=== PATIENT | male | born 1965 | race Caucasian/White ===

== ENCOUNTER 2016-12-15 01:59 | Emergency (ER) | payer MEDICARE, OTHER ==
[2016-12-15 02:06] VITALS: TEMP 98.6
[2016-12-15] MEDS ORDERED: cloNIDine HCL 0.1 MG TAB PO STA (03:02)
[2016-12-15 03:06] VITALS: RESP 16
--- NOTE | 2016-12-15 03:07 | ED ---
Headache HPI - General Chief Complaint: Headache Stated Complaint: Head/eye pain Time Seen by Provider: 12/15/16 02:40 Source: RN notes reviewed Mode of arrival: ambulatory Limitations: no limitations - History of Present Illness Initial Comments: Patient is a 51-year-old male with a chief complaint of headache for approximately 2 hours. Patient reports he has a history of chronic migraine- like headaches. He reports that he took 2 Percocets at home and did have some relief of his headache symptoms. He reports his pain is a 3 out of 10. Patient reports is also concerned because he's noticed a broken blood vessel is left eye. He denies any drainage or pain from the eye. He states that his vision is somewhat blurred however he is not wearing his glasses. He denies any acute changes in his vision. - Related Data Home Medications Medication Instructions Recorded Confirmed Omeprazole [PriLOSEC] 20 mg PO AC-BRKFST 05/21/15 12/15/16 buPROPion HCL [Wellbutrin SR] 150 mg PO DAILY 05/21/15 12/15/16 oxyCODONE-APAP 10-325MG [Percocet 1 each PO Q6HR PRN 05/21/15 12/15/16 10-325] Allergies Allergy/AdvReac Type Severity Reaction Status Date / Time carisoprodol [From Soma] Allergy Rash/Hives Verified 12/15/16 02:06 levofloxacin [From Levaquin] Allergy Rash/Hives Verified 12/15/16 02:06 Sulfa (Sulfonamide Allergy Rash/Hives Verified 12/15/16 02:06 Antibiotics) Review of Systems ROS Statement: Those systems with pertinent positive or pertinent negative responses have been documented in the HPI. ROS Other: All systems not noted in ROS Statement are negative. Past Medical History Past Medical History: GERD/Reflux, Osteoarthritis (OA) Additional Past Medical History / Comment(s): back pain, recent rectal bleeding History of Any Multi-Drug Resistant Organisms: None Reported Past Surgical History: Back Surgery, Hernia Repair, Orthopedic Surgery Additional Past Surgical History / Comment(s): carpal tunnel surg., jaw surg., right lower leg ORIF, eye surg. Past Anesthesia/Blood Transfusion Reactions: Previous Problems w/ Anesthesia Additional Past Anesthesia/Blood Transfusion Reaction / Comment(s): woke up during surgery Past Psychological History: No Psychological Hx Reported Smoking Status: Current every day smoker Past Alcohol Use History: None Reported Additional Past Alcohol Use History / Comment(s): currently trying to quit smoking, down to 3 cigs/day Past Drug Use History: None Reported General Exam - General Exam Comments Initial Comments: Is a well-appearing 51-year-old male. He does not appear in any acute distress. Limitations: no limitations General appearance: alert, in no apparent distress Head exam: Present: atraumatic, normocephalic, normal inspection Eye exam: Present: normal appearance, PERRL, EOMI, other (Patient has evidence of a burst a blood vessel in the left eye. No evidence of drainage.). Absent: scleral icterus, conjunctival injection, periorbital swelling ENT exam: Present: normal exam, mucous membranes moist Neck exam: Present: normal inspection. Absent: tenderness, meningismus, lymphadenopathy Respiratory exam: Present: normal lung sounds bilaterally. Absent: respiratory distress, wheezes, rales, rhonchi, stridor Cardiovascular Exam: Present: regular rate, normal rhythm, normal heart sounds. Absent: systolic murmur, diastolic murmur, rubs, gallop, clicks GI/Abdominal exam: Present: soft, normal bowel sounds. Absent: distended, tenderness, guarding, rebound, rigid Extremities exam: Present: normal inspection, full ROM, normal capillary refill. Absent: tenderness, pedal edema, joint swelling, calf tenderness Back exam: Present: normal inspection Neurological exam: Present: alert, oriented X3, CN II-XII intact Expanded Patient oriented to: Present: person, place, time Speech: Present: fluid speech Cranial nerves: EOM's Intact: Normal, Gag Reflex: Normal, Tongue Deviation: Normal, Facial Sensation: Normal Cerebellar function: Finger to Nose: Normal Upper motor neuron: Keith Neglect: Normal Sensory exam: Upper Extremity Light Touch: Normal, Lower Extremity Light Touch: Normal Motor strength exam: RUE: 5, LUE: 5, RLE: 5, LLE: 5 Eye Response: (4) open spontaneously Motor Response: (6) obeys commands Verbal Response: (5) oriented [place] Total: 15 Psychiatric exam: Present: normal affect, normal mood Skin exam: Present: warm, dry, intact, normal color. Absent: rash Course Vital Signs 01/25/17 01/25/17 01/25/17 02:04 03:06 03:19 Temperature 98.6 F Pulse Rate 85 85 Respiratory 18 16 Rate Blood Pressure 194/98 165/100 166/91 O2 Sat by Pulse 98 96 Oximetry 12/15/16 03:36 Temperature Pulse Rate 70 Respiratory 16 Rate Blood Pressure 149/96 O2 Sat by Pulse 97 Oximetry - Reevaluation(s) Reevaluation #1: 12/15/16 03:36 Patient was reevaluated and states this headache is a 2 out of 10. He has not been any acute distress. Medical Decision Making - Medical Decision Making Patient is a 51-year-old male with chief complaint of headache for 1 evening. He reports that the headache is more posterior radiates towards the front of his neck. Patient reports that this headache is currently 3 out of 10. He reports pain medications at home. He does not want to receive IV pain medications at this time. He refuses to have any blood work. I did advise the patient to do a computed tomography scan to rule out any abnormal causes for the headache and brain bleed. CT brain was negative for any acute process. Patient did have elevated blood pressure which was 190/100 initially came in. Before patient was given Catapres blood pressure was obtained was 168/100. Patient received 1 mg of Catapres. He also does have a blood vessel that is burst in the left eye. No decreased vision. No drainage of the vision. The blood vessel could be related to trauma for his elevated blood pressure. Patient understands treatment plan will comply. Return parameters were discussed. I advised patient to follow-up with primary care provider regards to hypertension. - Radiology Data Radiology results: report reviewed CT brain was negative for any acute process. Disposition Clinical Impression: Hypertension, Migraine, Burst blood vessel in eye Disposition: HOME SELF-CARE Condition: Good Instructions: Acute Headache (ED) Additional Instructions: Patient instructed to follow up with primary care provider in the next 1-2 days about hypertension. Possible medications to start would be lisinopril or another GARRETT inhibitor. Also possible beta blockers such as metoprolol. Return to the EC if any alarming signs or symptoms occur. Take Motrin Tylenol for the headaches. Referrals: Leslye Valdez MD [Primary Care Provider] - 1-2 days Time of Disposition: 03:49
--- NOTE | 2016-12-15 03:18 | CT ---
EXAMINATION TYPE: CT brain wo con DATE OF EXAM: 12/15/2016 3:13 AM COMPARISON: NONE HISTORY: headache CT DLP: 1090.40 mGycm Automated exposure control for dose reduction was used. FINDINGS: The ventricles and sulci are normal for age. There is no mass effect or midline shift. There is no si gn of intracranial hemorrhage. The calvarium is intact. IMPRESSION: Negative unenhanced head CT scan.
[2016-12-15 03:37] VITALS: BP 149/96; PULSE 70
== END 2016-12-15 03:54 | disposition home or self-care (01) ==
LOC: SUPCPDRO 01:59 → EC 01:59
DX: I10 Essential (primary) hypertension (principal); H11.32 Conjunctival hemorrhage, left eye; G43.909 Migraine, unspecified, not intractable, without status migrainosus; K21.9 Gastro-esophageal reflux disease without esophagitis; Z79.899 Other long term (current) drug therapy; Z88.1 Allergy status to other antibiotic agents; Z88.2 Allergy status to sulfonamides; Z88.8 Allergy status to other drugs, medicaments and biological substances; F17.200 Nicotine dependence, unspecified, uncomplicated
CPT/HCPCS: 70450; 99284

== ENCOUNTER 2023-06-14 12:58 | Emergency (ER) | payer MEDICARE ==
--- NOTE | 2023-06-14 13:39 | ED ---
General Adult HPI - General Chief complaint: Abdominal Pain Stated complaint: back Pain, sent by pcp Time Seen by Provider: 06/14/23 13:00 Source: patient, RN notes reviewed, old records reviewed Mode of arrival: ambulatory Limitations: no limitations - History of Present Illness Initial comments: This is a 58-year-old male who presents emergency Department complaining of back pain and dysuria. Patient denies any fever chills. Patient does state that the lower back pain has been going on for years he thought it might be related to a kidney infection. Patient states she has had a urinary tract infection the past. Patient states he has not been sexually active in the urine a half. Patient denies any significant abdominal pain he states it just has a little suprapubic discomfort but no actual pain. Patient denies any chest pain difficult breathing shortest breath. Patient states yesterday at 102 fever but he has not had a fever yet today. - Related Data Home Medications Medication Instructions Recorded Confirmed Omeprazole [PriLOSEC] 20 mg PO DAILY 05/21/15 06/14/23 oxyCODONE-APAP 10-325MG [Percocet 1 tab PO Q6HR 05/21/15 06/14/23 10-325] Atorvastatin [Lipitor] 10 mg PO DAILY 06/14/23 06/14/23 Multivitamins, Thera [Multivitamin 1 tab PO DAILY 06/14/23 06/14/23 (formulary)] lisinopriL [Zestril] 20 mg PO DAILY 06/14/23 06/14/23 Allergies Allergy/AdvReac Type Severity Reaction Status Date / Time carisoprodol [From Soma] Allergy Rash/Hives Verified 06/14/23 14:51 levofloxacin [From Levaquin] Allergy Rash/Hives Verified 06/14/23 14:51 Sulfa (Sulfonamide Allergy Rash/Hives Verified 06/14/23 14:51 Antibiotics) Review of Systems ROS Statement: Those systems with pertinent positive or pertinent negative responses have been documented in the HPI. ROS Other: All systems not noted in ROS Statement are negative. Past Medical History Past Medical History: GERD/Reflux, Osteoarthritis (OA) Additional Past Medical History / Comment(s): back pain, recent rectal bleeding History of Any Multi-Drug Resistant Organisms: None Reported Past Surgical History: Back Surgery, Hernia Repair, Orthopedic Surgery Additional Past Surgical History / Comment(s): carpal tunnel surg., jaw surg., right lower leg ORIF, eye surg. Past Anesthesia/Blood Transfusion Reactions: Previous Problems w/ Anesthesia Additional Past Anesthesia/Blood Transfusion Reaction / Comment(s): woke up during surgery Past Psychological History: No Psychological Hx Reported Smoking Status: Current every day smoker Past Alcohol Use History: None Reported Past Drug Use History: None Reported General Exam - General Exam Comments Initial Comments: GENERAL: Patient is well-developed and well-nourished. Patient is nontoxic and well- hydrated and is in mild distress. ENT: Neck is soft and supple. No significant lymphadenopathy is noted. Oropharynx is clear. Moist mucous membranes. Neck has full range of motion without eliciting any pain. EYES: The sclera were anicteric and conjunctiva were pink and moist. Extraocular movements were intact and pupils were equal round and reactive to light. Eyelids were unremarkable. PULMONARY: Unlabored respirations. Good breath sounds bilaterally. No audible rales rhonchi or wheezing was noted. CARDIOVASCULAR: There is a regular rate and rhythm without any murmurs gallops or rubs. ABDOMEN: Soft and nontender with normal bowel sounds. SKIN: Skin is clear with no lesions or rashes and otherwise unremarkable. NEUROLOGIC: Patient is alert and oriented x3. Cranial nerves II through XII are grossly intact. Motor and sensory are also intact. Normal speech, volume and content. Symmetrical smile. MUSCULOSKELETAL: Normal extremities with adequate strength and full range of motion. LYMPHATICS: No significant lymphadenopathy is noted PSYCHIATRIC: Normal psychiatric evaluation. Limitations: no limitations Course Vital Signs 06/14/23 06/14/23 06/14/23 12:59 14:13 15:00 Temperature 97.6 F 98.6 F 97.8 F Pulse Rate 101 H 86 81 Respiratory 18 18 18 Rate Blood Pressure 156/78 115/68 137/92 O2 Sat by Pulse 98 97 98 Oximetry Medical Decision Making - Medical Decision Making Was pt. sent in by a medical professional or institution (, [facility], FAMILY EDUCATOR, urgent care, hospital, or alf...) When possible be specific @ -No Did you speak to anyone other than the patient for history (EMS, parent, family, police, friend...)? What history was obtained from this source @ -No Did you review nursing and triage notes (agree or disagree)? Why? @ -I reviewed and agree with nursing and triage notes Were old charts reviewed (outside hosp., previous admission, EMS record, old EKG, old radiological studies, urgent care reports/EKG's, alf records)? Report findings @ -No old charts were reviewed Differential Diagnosis (chest pain, altered mental status, abdominal pain women, abdominal pain men, vaginal bleeding, weakness, fever, dyspnea, syncope, headache, dizziness, GI bleed, back pain, seizure, CVA, palpatations, mental health, musculoskeletal)? @ -Differential Fever: Pneumonia, viral URI, endocarditis, myocarditis, pericarditis, otitis, sinusitis, peritonsillar Abscess, retropharyngeal Abscess, epiglottitis, peritonitis, appendicitis, Carrol cystitis, diverticulitis, hepatitis, colitis, UTI, PID, TOA, pyelonephritis, prostatitis, epididymitis, meningitis, encephalitis, pulmonary embolism, CVA, thyroid storm, pancreatitis, adrenal crisis, cavernous sinus thrombosis, this is not meant to be an all-inclusive list. EKG interpreted by me (3pts min.). @ -As above X-rays interpreted by me (1pt min.). @ -None done CT interpreted by me (1pt min.). @ -None done U/S interpreted by me (1pt. min.). @ -None done What testing was considered but not performed or refused? (CT, X-rays, U/S, labs)? Why? @ -None What meds were considered but not given or refused? Why? @ -None Did you discuss the management of the patient with other professionals (professionals i.e. , PA, FAMILY EDUCATOR, lab, RT, psych nurse, social science manager, fx artist, teacher, mortgage loan officer originator, casework specialist)? Give summary @ -No Was smoking cessation discussed for >3mins.? @ -No Was critical care preformed (if so, how long)? @ -No Were there social determinants of health that impacted care today? How? (Homelessness, low income, unemployed, alcoholism, drug addiction, transportation, low edu. Level, literacy, decrease access to med. care, [place] [facility], rehab)? @ -No Was there de-escalation of care discussed even if they declined (Discuss DNR or withdrawal of care, Hospice)? DNR status @ -No What co-morbidities impacted this encounter? (DM, HTN, Smoking, COPD, CAD, Cancer, CVA, ARF, Chemo, Hep., AIDS, mental health diagnosis, sleep apnea, morbid obesity)? @ -None Was patient admitted / discharged? Hospital course, mention meds given and route, prescriptions, significant lab abnormalities, going to OR and other pertinent info. @ -Patient was given 2 g Rocephin for what appeared to be possible urinary tract infection. Patient's urine was a little odd because it had 50 squamous cells. Patient states he has nothing blocking the orifice and thought it would be clean urine. Patient wants to follow up with urology since this is a second consecutive urinary tract infection without explanation. I told him I would treat him with culture the urine and he can follow-up with the urologist or his primary medical place to see if antibiotics need to be continued Undiagnosed new problem with uncertain prognosis? @ -No Drug Therapy requiring intensive monitoring for toxicity (Heparin, Nitro, Ins ulin, Cardizem)? @ -No Were any procedures done? @ -No Diagnosis/symptom? @ -Urinary tract infection Acute, or Chronic, or Acute on Chronic? @ -Acute Uncomplicated (without systemic symptoms) or Complicated (systemic symptoms)? @ -Complicated Side effects of treatment? @ -No Exacerbation, Progression, or Severe Exacerbation? @ -No Poses a threat to life or bodily function? How? (Chest pain, [place], [place], pneumonia, PE, COPD, DKA, ARF, appy, cholecystitis, CVA, Diverticulitis, Homicidal, Suicidal, threat to staff... and all critical care pts) @ -No - Lab Data Result diagrams: 06/14/23 13:45 06/14/23 13:45 Lab Results 06/14/23 06/14/23 06/14/23 Range/Units 13:45 13:45 13:45 WBC 13.7 H (3.8-10.6) k/uL RBC 4.17 L (4.30-5.90) m/uL Hgb 13.2 (13.0-17.5) gm/dL Hct 38.8 L (39.0-53.0) % MCV 93.2 (80.0-100.0) fL MCH 31.7 (25.0-35.0) pg MCHC 34.0 (31.0-37.0) g/dL RDW 12.8 (11.5-15.5) % Plt Count 171 (150-450) k/uL MPV 9.3 Neutrophils % 70 % Lymphocytes % 18 % Monocytes % 9 % Eosinophils % 1 % Basophils % 1 % Neutrophils # 9.6 H (1.3-7.7) k/uL Lymphocytes # 2.4 (1.0-4.8) k/uL Monocytes # 1.2 H (0-1.0) k/uL Eosinophils # 0.1 (0-0.7) k/uL Basophils # 0.1 (0-0.2) k/uL Sodium 138 (137-145) mmol/L Potassium 4.0 (3.5-5.1) mmol/L Chloride 104 (98-107) mmol/L Carbon Dioxide 25 (22-30) mmol/L Anion Gap 9 mmol/L BUN 13 (9-20) mg/dL Creatinine 1.07 (0.66-1.25) mg/dL Est GFR (CKD-EPI)AfAm 88 (>60 ml/min/1.73 sqM) Est GFR (CKD-EPI)NonAf 76 (>60 ml/min/1.73 sqM) Glucose 121 H (74-99) mg/dL Calcium 9.3 (8.4-10.2) mg/dL Total Bilirubin 0.5 (0.2-1.3) mg/dL AST 20 (17-59) U/L ALT 14 (4-49) U/L Alkaline Phosphatase 63 (38-126) U/L Total Protein 7.1 (6.3-8.2) g/dL Albumin 4.3 (3.5-5.0) g/dL Urine Color Light Red Urine Appearance Turbid (Clear) Urine pH 5.5 (5.0-8.0) Ur Specific [place] 1.027 (1.001-1.035) Urine Protein 2+ H (Negative) Urine Glucose (UA) Negative (Negative) Urine Ketones Negative (Negative) Urine Blood Moderate H (Negative) Urine Nitrite Negative (Negative) Urine Bilirubin Negative (Negative) Urine Urobilinogen 2.0 (<2.0) mg/dL Ur Leukocyte Esterase Large H (Negative) Urine RBC 25 H (0-5) /hpf Urine WBC 50 H (0-5) /hpf Ur Squamous Epith Cells 50 H (0-4) /hpf Urine Bacteria Few H (None) /hpf Disposition Clinical Impression: Urinary tract infection Disposition: HOME SELF-CARE Condition: Good Instructions (If sedation given, give patient instructions): Urinary Tract Infection in Men (ED) Is patient prescribed a controlled substance at d/c from ED?: No Referrals: Leslye Valdez MD [Primary Care Provider] - 1-2 days Nathanael Kenyon MD [STAFF PHYSICIAN] - 1-2 days Time of Disposition: 16:54
[2023-06-14 14:18] LABS: Basophils # (A) 0.1 k/uL (0-0.2); Basophils % (A) 1 %; Eosinophils # (A) 0.1 k/uL (0-0.7); Eosinophils % (A) 1 %; HCT 38.8 % (39.0-53.0); HGB 13.2 gm/dL (13.0-17.5); Lymphocytes # (A) 2.4 k/uL (1.0-4.8); Lymphocytes % (A) 18 %; MCH 31.7 pg (25.0-35.0); MCV 93.2 fL (80.0-100.0); Mean Platelet Volume 9.3; Monocytes # (A) 1.2 k/uL (0-1.0); Monocytes % (A) 9 %; Neutrophils # (A) 9.6 k/uL (1.3-7.7); Neutrophils % (A) 70 %; Platelet Count 171 k/uL (150-450); RBC 4.17 m/uL (4.30-5.90); RDW 12.8 % (11.5-15.5); WBC 13.7 k/uL (3.8-10.6)
[2023-06-14 14:28] LABS: ALT 14 U/L (4-49); AST 20 U/L (17-59); African American GFR (CKD) 88 (>60 ml/min/1.73 sqM); Albumin 4.3 g/dL (3.5-5.0); Alkaline Phosphatase 63 U/L (38-126); Anion Gap 9 mmol/L; Blood Urea Nitrogen 13 mg/dL (9-20); Calcium 9.3 mg/dL (8.4-10.2); Carbon Dioxide 25 mmol/L (22-30); Chloride 104 mmol/L (98-107); Glucose 121 mg/dL (74-99); Non-African American GFR(CKD) 76 (>60 ml/min/1.73 sqM); Sodium 138 mmol/L (137-145); Total Bilirubin 0.5 mg/dL (0.2-1.3); Total Protein 7.1 g/dL (6.3-8.2)
[2023-06-14 15:20] LABS: Appearance,Urine Turbid (Clear); Bilirubin,Urine Negative (Negative); Blood,Urine Moderate (Negative); Color,Urine Light Red; Glucose,Urine (UA) Negative (Negative); Ketones,Urine Negative (Negative); Leukocyte Esterase,Urine Large (Negative); Nitrite,Urine Negative (Negative); PH, Urine 5.5 (5.0-8.0); Protein,Urine 2+ (Negative); Specific Gravity,Urine 1.027 (1.001-1.035)
[2023-06-14 15:42] LABS: WBC,Urine 50 /hpf (0-5)
[2023-06-14 15:43] LABS: Bacteria,Urine Few /hpf; RBC,Urine 25 /hpf (0-5); Squamous Epithelial Cell,Urine 50 /hpf (0-4)
[2023-06-14] MEDS ORDERED: cefTRIAXone IN SWFI 1,000 MG/10 ML SYRINGE IVP STA (16:38)
[2023-06-14 16:59] VITALS: BP 141/88; PULSE 66; RESP 20; TEMP 98.8
[2023-06-16 14:31] LABS: N. gonorrhoeae,PCR Negative (Negative)
[2023-06-16 14:47] LABS: C. trachomatis,PCR Negative (Negative)
== END 2023-06-14 17:06 | disposition home or self-care (01) ==
LOC: EC 12:58
DX: N39.0 Urinary tract infection, site not specified (principal); B96.20 Unspecified Escherichia coli [E. coli] as the cause of diseases classified elsewhere; K21.9 Gastro-esophageal reflux disease without esophagitis; M19.90 Unspecified osteoarthritis, unspecified site; F17.200 Nicotine dependence, unspecified, uncomplicated; Z88.2 Allergy status to sulfonamides; Z88.1 Allergy status to other antibiotic agents; Z88.8 Allergy status to other drugs, medicaments and biological substances; Z79.899 Other long term (current) drug therapy
CPT/HCPCS: 36415; 80053; 85025; 81001; 87491; 87591; 87086; 99284; 96374; J0696; 87077; 87186